=== PATIENT | male | born 1980 | race Caucasian/White ===

== ENCOUNTER 2019-12-28 08:54 | Emergency (ER) | payer OTHER, SELFPAY ==
[2019-12-28 09:01] VITALS: BP 130/77; PULSE 62; RESP 16; TEMP 35.6; O2SAT 100
--- NOTE | 2019-12-28 09:15 | ED.EAR ---
HPI - Ear Problem General Chief complaint: Ear Stated complaint: ear clogged Time Seen by Provider: 12/28/19 09:05 Source: patient and RN notes reviewed Mode of arrival: ambulatory Limitations: no limitations History of Present Illness HPI Narrative: 39-year-old male presents with concern for clogged left ear . Reports history of needing to have his ears cleaned out. He denies pain, drainage. Reports feeling of pressure in his left ear. Denies upper respiratory symptoms such as rhinorrhea, nasal congestion, sore throat, cough, shortness of breath. Denies fever MD Complaint: decreased hearing Related Data Home Medications Medication Instructions Recorded Confirmed No Home Medications 12/28/19 12/28/19 Allergies Allergy/AdvReac Type Severity Reaction Status Date / Time No Known Allergies Allergy Verified 02/15/13 15:26 Review of Systems Review of Systems: Narrative: CONSTITUTIONAL: Denies malaise, chills, sweats, or fever. EYES: Denies visual changes, redness, or discharge. ENT: Denies rhinorrhea, congestion, sinus pain, otalgia or sore throat. Reports left ear fullness, pressure, decreased hearing CARDIOVASCULAR: Denies chest pain, palpitations, or edema. RESPIRATORY: Denies cough or dyspnea. SKIN: Denies rash or itching. MUSCULOSKELETAL: Denies myalgia. NEUROLOGIC: Denies headache. All systems reviewed & are unremarkable except as noted in HPI and below PMFSH Social History Social History Smoking status: Never smoker Comments At time of signature, agree with nursing past medical, surgical, social and family history. There is no relevant family history pertinent to the presenting complaint Exam Narrative: Exam Narrative: GENERAL: Well-appearing, well-nourished, and in no acute distress. HEAD: Normocephalic, atraumatic. EYES: PERRLA, conjunctivae clear ENT: Mucous membranes moist. Right TM pearly fontana with sharp light reflex, left TM not visible due to cerumen impaction; no tragal tenderness. NECK: Supple CHEST: No respiratory distress. Speaks in full sentences. HEART: Regular rate and rhythm. SKIN: Warm, dry, no rash. NEURO: Alert and oriented x3. PSYCH: Normal mood and affect Course Course Emergency Course: Discussed with patient possible risks of cerumen removal such as eardrum rupture and trauma to the ear canal. Patient verbalizes understanding and gives consent for the procedure. Patient is aware of diagnosis, understands and agrees to treatment plan. Anticipatory guidance given. Patient agrees to follow-up as directed and is aware of reasons to seek care at the emergency department. Portions of this record may have been created with voice recognition software Vital Signs Vital signs: Vital Signs Temperature 96.0 F L 12/28/19 09:01 Pulse Rate 62 12/28/19 09:01 Respiratory Rate 16 12/28/19 09:01 Blood Pressure 130/77 12/28/19 09:01 Pulse Oximetry 100 12/28/19 09:01 Temperature 96.0 F L 12/28/19 09:01 Pulse Rate 62 12/28/19 09:01 Respiratory Rate 16 12/28/19 09:01 Blood Pressure 130/77 12/28/19 09:01 Pulse Oximetry 100 12/28/19 09:01 Reviewed. Procedures Ear Wax Removal Left Ear: Ear Wax Removal Date: 12/28/19 Ear Wax Removal Time: 09:13 Cerumenolytic Used: 5-10% Sodium Bicarb solution Results: Re-examined: cerumen removed completely TM Examination: TM(s) intact, normal appearance Ear Canal Exam: atraumatic Patient Tolerated Procedure: well Complications: no problems Technique: ear canal irrigated Medical Decision Making Vital Signs Vital Signs: Vital Signs Temperature 96.0 F L 12/28/19 09:01 Pulse Rate 62 12/28/19 09:01 Respiratory Rate 16 12/28/19 09:01 Blood Pressure 130/77 12/28/19 09:01 Pulse Oximetry 100 12/28/19 09:01 Temperature 96.0 F L 12/28/19 09:01 Pulse Rate 62 12/28/19 09:01 Respiratory Rate 16 12/28/19 09:01 Blood Pressure 130/77 11/1
== END 2019-12-28 09:33 | disposition home or self-care (01) ==
PROVIDERS: Emergency Provider Nurse Practitioner
DX: H61.22 Impacted cerumen, left ear (principal); Z95.0 Presence of cardiac pacemaker
CPT/HCPCS: 69209; 99202; G0463